=== PATIENT | female | born 1990 | race Caucasian/White ===

== ENCOUNTER 2016-11-27 15:50 | Emergency (ER) | payer SELFPAY ==
[2016-11-27] MEDS ORDERED: ACETAMINOPHEN 325 MG TABLET PO ONE (16:06)
[2016-11-27] MEDS ORDERED: ONDANSETRON 4 MG TAB.RAPDIS PO ONE (16:06)
--- NOTE | 2016-11-27 16:06 | ER Document Report ---
ED Medical Screen (RME) - General Stated Complaint: ABDOMINAL PAIN Mode of Arrival: Ambulatory Information source: Patient Notes: Patient complains of upper abdominal pain with nausea and vomiting. Pain started this morning. Patient complains of headache and chills. Patient complains of sore throat and mild cough. Patient reports increased urination. Patient reports syncopal episode 1 today. Patient states she has syncopal episodes after having severe pain. hx: Cholecystectomy, seizures I have greeted and performed a rapid initial assessment of this patient. A comprehensive ED assessment and evaluation of the patient, analysis of test results and completion of the medical decision making process will be conducted by additional ED providers. Physical Exam - Vital signs Vitals: Temp Pulse Resp BP Pulse Ox 100.0 F 129 H 18 128/83 H 98 11/27/16 15:56 11/27/16 15:56 11/27/16 15:56 11/27/16 15:56 11/27/16 15:56 - Abdominal Tenderness: Tender - Upper abdomen Course - Vital Signs Vital signs: Temp Pulse Resp BP Pulse Ox 100.0 F 129 H 18 128/83 H 98 11/27/16 15:56 11/27/16 15:56 11/27/16 15:56 11/27/16 15:56 11/27/16 15:56
[2016-11-27 17:28] LABS: HEMATOCRIT 43.7 % (36.0-47.0); HEMOGLOBIN 14.7 g/dL (12.0-15.5); HGB HCT DIFFERENCE 0.4; MEAN CORPUSCULAR HEMOGLOBIN 29.5 pg (27.0-33.4); MEAN CORPUSCULAR HGB CONC 33.6 g/dL (32.0-36.0); MEAN CORPUSCULAR VOLUME 88 fl (80-97); RED BLOOD COUNT 4.98 10^6/uL (3.72-5.28); RED CELL DISTRIBUTION WIDTH 13.9 % (11.5-14.0); WHITE BLOOD COUNT 13.1 10^3/uL (4.0-10.5)
[2016-11-27 17:36] LABS: AMORPHOUS SEDIMENT,URINE TRACE /HPF; APPEARANCE,URINE SLIGHTLY-CLOUDY; BILIRUBIN,URINE NEGATIVE (NEGATIVE); GLUCOSE, URINE NEGATIVE (NEGATIVE); KETONES,URINE TRACE mg/dL (NEGATIVE); LEUKOCYTE ESTERASE,URINE NEGATIVE (NEGATIVE); NITRITE,URINE NEGATIVE (NEGATIVE); PROTEIN,URINE NEGATIVE (NEGATIVE); URINE SPECIFIC GRAVITY 1.018; UROBILINOGEN,URINE NEGATIVE mg/dL (<2.0)
[2016-11-27 17:48] LABS: ALANINE AMINOTRANSFERASE 36 U/L (9-52); ALBUMIN 4.4 g/dL (3.5-5.0); ALKALINE PHOSPHATASE 87 U/L (38-126); ANION GAP 17 (5-19); ASPARTATE AMINO TRANSFERASE 27 U/L (14-36); BILIRUBIN,TOTAL 0.6 mg/dL (0.2-1.3); BLOOD UREA NITROGEN 8 mg/dL (7-20); CALCIUM 9.8 mg/dL (8.4-10.2); CARBON DIOXIDE 23 mmol/L (22-30); CHLORIDE 100 mmol/L (98-107); CREATININE RESULT 0.76 mg/dL (0.52-1.25); GLUCOSE 93 mg/dL (75-110); LIPASE 38.5 U/L (23-300); POTASSIUM 4.2 mmol/L (3.6-5.0); SODIUM 139.7 mmol/L (137-145); TOTAL PROTEIN 8.5 g/dL (6.3-8.2)
[2016-11-27 18:01] LABS: BASOPHILS % (MANUAL) 0 % (0-2); EOSINOPHILS % (MANUAL) 0 % (0-6); LYMPHOCYTES % (MANUAL) 4 % (13-45); TOTAL CELLS COUNTED 100
[2016-11-27 18:02] LABS: RBC MORPHOLOGY COMMENT NORMO-CYTIC/CHROMIC; TOXIC GRANULATION SLIGHT; TOXIC VACUOLATION PRESENT
[2016-11-27] MEDS ORDERED: NORMAL SALINE 1000 ML 1,000 ML IV ONE (18:46)
[2016-11-27] MEDS ORDERED: PENICILLIN G BENZATHINE 1.2 MILLION UNIT/2 ML DISP.SYRIN IM ONE (18:46)
[2016-11-27] MEDS ORDERED: PROCHLORPERAZINE EDISYLATE INJ 10 MG/2 ML VIAL IV ONE (18:47)
[2016-11-27] MEDS ORDERED: ONDANSETRON HCL INJ/PF 4 MG/2 ML SDV IV ONE (18:47)
[2016-11-27] MEDS ORDERED: DEXAMETHASONE SOD PHOS INJ 10 MG/1 ML VIAL IV ONE (18:47)
[2016-11-27] MEDS ORDERED: DIPHENHYDRAMINE HCL 50 MG/ML VIAL IV ONE (18:48)
[2016-11-27] MEDS ORDERED: KETOROLAC TROMETHAMINE INJ/PF 30 MG/1 ML SDV IV ONE (18:49)
--- NOTE | 2016-11-27 19:09 | ER Document Report ---
ED General - General Chief Complaint: abdominal pain, N/V, [place] Stated Complaint: ABDOMINAL PAIN Mode of Arrival: Ambulatory TRAVEL OUTSIDE OF THE [place] IN LAST 30 DAYS: No - HPI Patient complains to provider of: headache fevers nausea vomiting upper abdominal pain sore throat Notes: Patient symptoms ongoing for the last to 3 days. Patient states history of seizures and cholecystectomy. Patient states epigastric right upper quadrant abdominal pain patient states symptoms are when she had a cholecystitis in the past. Patient also states cough nonproductive sore throat. Fevers and headache. Patient states she's been unable to keep anything down today. Patient is to be tachycardic in triage. Otherwise patient looks mildly dehydrated no obvious concerning etiologies - Related Data Allergies/Adverse Reactions: No Known Allergies Allergy (Unverified 11/27/16 16:10) Past Medical History - General Information source: Patient - Social History Smoking Status: Unknown if Ever Smoked Family History: Reviewed & Not Pertinent Patient has suicidal ideation: No Patient has homicidal ideation: No Neurological Medical History: Reports: Hx Seizures Renal/ Medical History: Denies: Hx Peritoneal Dialysis - Immunizations Hx Diphtheria, Pertussis, Tetanus Vaccination: No Review of Systems - Review of Systems Constitutional: Fever EENT: Throat pain Cardiovascular: No symptoms reported Respiratory: No symptoms reported Gastrointestinal: Abdominal pain, Nausea, Vomiting Genitourinary: No symptoms reported Female Genitourinary: No symptoms reported Musculoskeletal: No symptoms reported Skin: No symptoms reported Hematologic/Lymphatic: No symptoms reported Neurological/Psychological: No symptoms reported -: Yes All other systems reviewed and negative Physical Exam - Vital signs Vitals: Temp Pulse Resp BP Pulse Ox 100.0 F 129 H 18 128/83 H 98 11/27/16 15:56 11/27/16 15:56 11/27/16 15:56 11/27/16 15:56 11/27/16 15:56 Interpretation: Tachycardic - General General appearance: Appears well, Alert - HEENT Head: Normocephalic, Atraumatic Eyes: Normal Conjunctiva: Normal Cornea: Normal Eyelashes: Normal Pupils: PERRL Ears: Normal External canal: Normal Tympanic membrane: Normal Sinus: Normal Nasal: Normal Mouth/Lips: Normal Pharynx: Erythema. No: Peritonsillar abscess Neck: Normal - Respiratory Respiratory status: No respiratory distress Chest status: Nontender Breath sounds: Normal Chest palpation: Normal - Cardiovascular Rhythm: Regular, Tachycardia Heart sounds: Normal auscultation Murmur: No - Abdominal Inspection: Normal Distension: No distension Bowel sounds: Normal Tenderness: Nontender Organomegaly: No organomegaly - Back Back: Normal, Nontender - Extremities General upper extremity: Normal inspection, Nontender, Normal color, Normal ROM , Normal temperature General lower extremity: Normal inspection, Nontender, Normal color, Normal ROM , Normal temperature, Normal weight bearing. No: Juanito's sign - Neurological Neuro grossly intact: Yes Cognition: Normal Orientation: AAOx4 Allie Coma Scale Eye Opening: Spontaneous [place] Coma Scale Verbal: Oriented [place] Coma Scale Motor: Obeys Commands [place] Coma Scale Total: 15 Speech: Normal Motor strength normal: LUE, RUE, LLE, RLE Sensory: Normal - Psychological Associated symptoms: Normal affect, Normal mood - Skin Skin Temperature: Warm Skin Moisture: Dry Skin Color: Normal Course - Re-evaluation Re-evalutation: 11/27/16 19:06 Patient's lab work returned positive for strep. Because patient states she cannot tolerate by mouth this time I will get the patient a shot of Bicillin for her strep. Patient will be given IV fluids pain medications steroids nausea medications. More likely discharge home after these treatment modalities have given to the patient. 11/27/16 20:12 - Vital Signs Vital signs: Temp Pulse Resp BP Pulse Ox 100.0 F 129 H 18 128/83 H 98 11/27/16 15:56 11/27/16 15:56 11/27/16 15:56 11/27/16 15:56 11/27/16 15:56 - Laboratory Result Diagrams: 11/27/16 17:12 11/27/16 17:12 Laboratory results interpreted by me: 11/27/16 11/27/16 11/27/16 17:12 17:12 17:12 WBC 13.1 H Seg Neuts % (Manual) 86 H Lymphocytes % (Manual) 4 L Abs Neuts (Manual) 11.3 H Total Protein 8.5 H Urine Ketones TRACE H Discharge - Discharge Clinical Impression: Strep pharyngitis, Marijuana use Headache Qualifiers: Headache type: unspecified Headache chronicity pattern: unspecified pattern Intractability: not intractable Qualified Code(s): R51 - Headache Nausea & vomiting Qualifiers: Vomiting type: unspecified Vomiting Intractability: unspecified Qualified Code( s): R11.2 - Nausea with vomiting, unspecified Disposition: HOME, SELF-CARE Instructions: Vomiting ([facility]), Strep Throat ([facility]), Dehydration ([facility]) Additional Instructions: Your evaluated today more likely muscular symptoms are coming from the fact that your infected with strep. We will treat her strep throat with a shot of penicillin. He would not need any further antibiotics after this injection. Please drink plenty of fluids for the next few days stay well hydrated. It is not important that you eat any food at this time however if you do feel like eating food overt recommend crackers and then advance as tolerated Prescriptions: Ondansetron [Zofran Odt 4 mg Tablet] 4 mg PO Q6 #30 tab.rapdis Prochlorperazine Maleate [Compazine] 5 mg PO Q6 #30 tablet Forms: Return to Work
[2016-11-27 19:46] LABS: URINE BARBITURATES SCREEN NEGATIVE; URINE METHADONE SCREEN NEGATIVE; URINE OPIATES LOW NEGATIVE; URINE PHENCYCLIDINE SCREEN NEGATIVE
[2016-11-27 21:24] VITALS: BP 122/88
== END 2016-11-27 21:10 | disposition home or self-care (01) ==
LOC: ER 15:50
DX: J02.0 Streptococcal pharyngitis (principal); F12.90 Cannabis use, unspecified, uncomplicated; R51 Headache; R11.2 Nausea with vomiting, unspecified; Z90.49 Acquired absence of other specified parts of digestive tract
CPT/HCPCS: 99284; 96372; 96361; 96374; 96375; 36415; 87880; 83690; 84703; 85025; 80053; 81001; 80307; S0119; J1885; J0561; J2405; J7030; J1100